=== PATIENT | male | born 2000 | race Caucasian/White ===

== ENCOUNTER 2022-12-17 19:18 | Emergency (ER) | payer OTHER ==
[~2022-12-17] VITALS: Ht 182.9 cm; Wt 79.9 kg
[2022-12-17] MEDS ORDERED: DERMABOND TOPICAL SKIN ADHESIVE TOP ONE (20:05)
[2022-12-17 20:48] VITALS: BP 149/66
== END 2022-12-17 20:54 | disposition home or self-care (01) ==
LOC: M ED 19:18 → EDBD 19:18 → M ED 20:54
DX: S61.216A Laceration without foreign body of right little finger without damage to nail, initial encounter (principal); W26.0XXA Contact with knife, initial encounter; Y92.009 Unspecified place in unspecified non-institutional (private) residence as the place of occurrence of the external cause